=== PATIENT | male | born 1970 | race Caucasian/White ===

== ENCOUNTER 2018-01-03 20:30 | Emergency (ER) | END 2018-01-04 00:40 | disposition home or self-care (01) ==

== ENCOUNTER 2018-01-06 10:35 | Emergency (ER) | END 2018-01-06 13:13 | disposition home or self-care (01) ==

== ENCOUNTER 2018-01-18 17:49 | Emergency (ER) | END 2018-01-19 00:08 | disposition home or self-care (01) ==